=== PATIENT | female | born 1985 | race Caucasian/White ===

== ENCOUNTER 2024-02-21 12:54 | Outpatient (CLI) | payer OTHER, SELFPAY ==
--- NOTE | ~2024-02-21 | CT_ITS ---
EXAMINATION: CT abdomen pelvis w con DATE: 02/21/2024 13:17 INDICATION: Unspecified abdominal pain TECHNIQUE: Computed tomography (CT) of the abdomen and pelvis was performed with 100 mL Omnipaque-350 intravenous contrast. Automated exposure control and iterative reconstruction technique were employe d. The dose-length product was 410.60 mGy-cm. COMPARISON: None FINDINGS: Lung bases are clear. Heart size is normal. No pericardial or pleural effusion. Liver, gallbladder, s pleen, pancreas, bilateral adrenal glands and right kidney are normal. 6 x 4 x 3 mm stone at the left ureteropelvic junction without hydronephrosis. Bowels including the appendix are normal. Bladder, ut erus and right adnexa are unremarkable. 1.8 cm left ovarian cyst/follicle. No free intraperitoneal ga s or fluid. No pathologically enlarged abdominal or pelvic lymphadenopathy. Mild lower thoracic spond ylosis with chronic appearing mild anterior wedging at T10 and T11. IMPRESSION: 1. 6 mm stone at the left ureteropelvic junction without hydronephrosis. Reviewed, dictated and finalized at location B.
== END 2024-02-21 12:55 ==
PROVIDERS: PCP Physician Assistant; Visit Provider Physician Assistant
DX: R10.9 Unspecified abdominal pain (principal); R19.7 Diarrhea, unspecified; N20.1 Calculus of ureter
CPT/HCPCS: 74177; Q9967

== ENCOUNTER 2024-03-02 11:49 | Outpatient (CLI) | payer OTHER, SELFPAY ==
--- NOTE | ~2024-03-02 | US_ITS ---
US pelvic complete w TV Ordering provider: Fabiana Tim PA-C History: . N83.209 - Unspecified ovarian cyst, unspecified side . Comparison: None. Technique: Transabdominal and endovaginal ultrasound of the pelvis (Doppler ultrasound interrogation techniques used as needed for this exam.) FINDINGS: CERVIX: Normal. UTERUS: Measures 6.8x 3.2x 4.1 cm in length which is within normal limits and is anteverted. No myom etrial masses. ENDOMETRIUM: Normal in thickness measuring 5.7 mm. (Note: the premenopausal endometrium may measure u p to 16 mm when in the secretory phase.) No endometrial masses, cysts or fluid. CUL DE SAC: No free fluid. RIGHT OVARY: Normal in size measuring 1.3x 1.5x 1.9 cm. Normal echotexture. Doppler vascular flow pre sent. LEFT OVARY: Normal in size measuring 2.6x 1.6x 2.5 cm. Normal echotexture. Doppler vascular flow pres ent. ADNEXA: Normal. No mass. IMPRESSION: Normal pelvic ultrasound. Reviewed, dictated and finalized at location A. IMPRESSION: Normal pelvic ultrasound.
== END 2024-03-02 11:50 ==
PROVIDERS: PCP Family Medicine; Visit Provider Physician Assistant
DX: N83.209 Unspecified ovarian cyst, unspecified side (principal)
CPT/HCPCS: 76830; 76856

== ENCOUNTER 2024-05-12 13:56 | Outpatient (CLI) | payer OTHER, SELFPAY ==
--- NOTE | ~2024-05-12 | CT_ITS ---
EXAMINATION: CT abdomen pelvis wo con DATE: 05/12/2024 14:17 INDICATION: Kidney stone TECHNIQUE: Computed tomography (CT) of the abdomen and pelvis was performed without intravenous contr ast. Automated exposure control and iterative reconstruction technique were employed. The dose-length product was 213.16 mGy-cm. COMPARISON: 02/21/2024 FINDINGS: Lung bases are clear. Heart size is normal. No pericardial or pleural effusion. Liver, gallbladder, s pleen, pancreas, bilateral adrenal glands and right kidney are normal. 6 mm nonobstructing stone at t he lower pole of the left kidney which appears to reflux from the prior position at the ureteropelvic junction. No ureteral stones or hydronephrosis on either the left or right. Bladder, anteverted uter us and bilateral adnexa are unremarkable. Bowels including the appendix are normal. No free intraperi toneal gas or fluid. No pathologically enlarged abdominal or pelvic lymphadenopathy. Mild lower thora cic spondylosis. Chronic appearing mild anterior wedging at T10 and T11. IMPRESSION: 1. Previously seen 6 mm stone at the left ureteropelvic junction has refluxed into a lower pole calyx of the left kidney. No hydronephrosis. Reviewed, dictated and finalized at location A. IMPRESSION: 1. Previously seen 6 mm stone at the left ureteropelvic junction has refluxed i nto a lower pole calyx of the left kidney. No hydronephrosis.
== END 2024-05-12 13:57 | disposition home or self-care (01) ==
PROVIDERS: PCP Family Medicine
DX: N20.0 Calculus of kidney (principal)
CPT/HCPCS: 74176

== ENCOUNTER 2024-07-31 01:00 | Day surgery (SDC) | payer OTHER, SELFPAY ==
[2024-07-30 09:25] VITALS: BMI 23.9
[2024-07-31 09:09] VITALS: BP 120/86; PULSE 119; RESP 16; TEMP 36.4; O2SAT 100
--- NOTE | 2024-07-31 09:11 | WPDANESEPPF ---
Anes - Initial Pre Proc Eval Procedure: Operation Date: 07/31/24 10:30 Proposed Procedures p Esophagogastroduodenoscopy & Colonoscopy - Kvng Archer MD Date/Time: 07/31/24 09:11 Surgeon: Kvng Archer MD Pre Op Diagnosis: Nausea,GERD,dysphagia,diarrhea, Patient Data Age: 39 Gender: F Height: 1.6 m Weight: 61.3 kg Allergies Allergy/AdvReac Type Severity Reaction Status Date / Time pistachio nut Allergy Intermediate Other Verified 07/31/24 09:05 bacitracin Allergy Mild rash Verified 07/31/24 09:05 neomycin Allergy Mild sob Verified 07/31/24 09:05 polymyxin B Allergy Mild sob Verified 07/31/24 09:05 tamsulosin AdvReac Intermediate Nausea Uncoded 07/31/24 09:05 Home Medications ?Medication ?Instructions ?Recorded ?Confirmed ?Type gabapentin 300 mg capsule See Rx Instructions .Route 03/30/24 07/31/24 Rx .COMPLEX #360 caps amitriptyline 10 mg tablet See Rx Instructions .Route 03/31/24 07/31/24 Rx .COMPLEX #180 tabs clobetasol 0.05 % topical ointment 1 applic topical DAILY #60 grams 03/31/24 07/30/24 Rx triamcinolone acetonide 0.1 % 1 applic topical BID #80 grams 03/31/24 07/31/24 Rx topical ointment norethindrone 1 mg-ethinyl 1 tablet PO DAILY #112 tabs 06/10/24 07/31/24 Rx estradiol 20 mcg (24)-iron 75 mg (4) tablet () omeprazole 40 mg capsule,delayed 40 mg PO DAILY #90 caps 06/23/24 07/31/24 Rx release hyoscyamine sulfate 0.125 mg tablet 0.125 mg PO QID #360 tabs 07/20/24 07/31/24 Rx Patient hx anesthesia problems: none Family hx anesthesia problems: none Results Review: All pre-operative results and documents have been reviewed as part of the pre-operative evaluation. [facility] Past Medical History Medical History (Updated 07/31/24 @ 09:12 by Barrera Beal MD) Hyperlipidemia GERD (gastroesophageal reflux disease) Fibromyalgia Gluten intolerance Surgical History Surgical History [place] teeth extracted Family History Family History Father Alcoholic Social History Social History Social History: Single Smoking status: Never smoker Second hand tobacco smoke exposure: No Alcohol intake: never Substance use: never Substance use type: does not use Do You Feel Safe in your Home?: Yes Lack of Transportation: No Lack of Food: Never True Current Housing: I Have Housing Concerned About Future Housing: No Difficulty Paying Gas/Electric Bills: No Difficulty Paying for Meds: No Currently Unemployed: No Education: Decline to Answer Difficulty w/ Childcare or Family Care: Decline to Answer Living arrangements: alone Occupation/Education: occupation Additional occupation/education comments: Teacher Gender identity (if verbalized by the patient): Female Sexual Orientation (if Verbalized by the Patient): Straight or Heterosexual Spiritual care concerns: No Agree to blood products: No Anes - Eval Final PreProcedure Day of Procedure 07/31/24 09:11 Patient weight: normal Heart: tachycardia Lungs: clear to auscultation Airway: Mallampati scale class II Neurological: alert and oriented Last oral intake: >/= 8 hours ASA classification: III Emergent: no Anesthetic plan: proceed Anesthesia type and monitoring: general GIVS and standard monitoring Results Review: All pre-operative results and documents have been reviewed as part of the pre-operative evaluation. Informed Consent: The patient's anesthetic plan and its attendant risks and benefits were discussed with the patient/family/POA. Questions were solicited and answers provided to the satisfaction of the patient/family/POA.
[2024-07-31 09:15] LABS: BEDSIDEPREGUCG Negative (Negative)
[2024-07-31] MEDS: LACTATED RINGERS 1,000 ML 150 ML IV CONT (09:19)
--- NOTE | 2024-07-31 09:27 | WPDHPUPDATE1 ---
History and Physical Update Update Date/Time: 07/31/24 09:27 History and Physical has been reviewed, including an updated exam of the patient. There are NO changes in the patient's condition. Risks, benefits, and alternatives have been discussed and questions answered. Patient agrees to proceed with procedure.
--- NOTE | 2024-07-31 09:41 | SUR.OPER ---
EGD start 932 end 935, Colonoscopy start 941
[2024-07-31 09:51] VITALS: BP 92/62; PULSE 96; RESP 21; O2SAT 100
[2024-07-31 10:01] VITALS: BP 99/69; PULSE 81; RESP 15; O2SAT 100
[2024-07-31 10:11] VITALS: BP 99/72; PULSE 84; RESP 22; O2SAT 100
== END 2024-07-31 10:20 | disposition home or self-care (01) ==
PROVIDERS: Anesthesiology; PCP Family Medicine; Referring Provider Nurse Practitioner Family; Visit Provider Internal Medicine Gastroenterology
PROC: 0DJ08ZZ Inspection of Upper Intestinal Tract, Via Natural or Artificial Opening Endoscopic (ICD-10-PCS; CPT 43235; principal; 2024-07-31 10:30)
DX: K29.50 Unspecified chronic gastritis without bleeding (principal); R10.30 Lower abdominal pain, unspecified; R11.0 Nausea; R19.7 Diarrhea, unspecified; K21.9 Gastro-esophageal reflux disease without esophagitis; R13.10 Dysphagia, unspecified; R63.4 Abnormal weight loss; R63.0 Anorexia; R68.81 Early satiety; M79.7 Fibromyalgia; E78.5 Hyperlipidemia, unspecified; K90.41 Non-celiac gluten sensitivity; Z68.21 Body mass index [BMI] 21.0-21.9, adult
CPT/HCPCS: 45378; 43239; 88305; J2704; J7120

== ENCOUNTER 2024-08-04 08:04 | Outpatient (CLI) | payer OTHER, SELFPAY ==
--- NOTE | ~2024-08-04 | NM_ITS ---
EXAM: NM gastric emptying study DATE: 08/04/2024 12:53 CNC SET UP OPERATOR INDICATION: Early satiety TECHNIQUE: A gastric emptying study was performed using the methodology of Adal PORTILLO, et al. J Nucl Med 2007; 48:568-572. The patient was given a meal consisting of 2 scrambled eggs labeled with 1.059 mCi Tc-99m sulfur colloid, 2 slices of toast, two packages of jam, and approximately 120 mL of water . Simultaneous anterior and posterior 1-min images of the abdomen were obtained with the patient supi ne at multiple time points over a total period of 4 hours. The geometric mean of anterior and posteri or views was determined, and the percentage retention was calculated for each time point. COMPARISON: CT dated 05/12/2024. FINDINGS: Gastric retention of the radiotracer-labeled meal was 56%, 38%, and 2% at the 1-hour, 2-ho ur, and 4-hour time points, respectively. With this technique, apparent rapid gastric emptying is sug gested by <30% gastric retention at 1 hour. Delayed gastric emptying is defined by gastric retention of >90% at 1 hour, >60% retention at 2 hours, or >10% retention at 4 hours. IMPRESSION: 1. Normal gastric emptying. Reviewed, dictated and finalized at location B. SET UP OPERATOR IMPRESSION: 1. Normal gastric emptying.
== END 2024-08-04 08:05 | disposition home or self-care (01) ==
PROVIDERS: PCP Family Medicine; Visit Provider Nurse Practitioner Family
DX: R68.81 Early satiety (principal); R11.0 Nausea; R63.0 Anorexia; R63.4 Abnormal weight loss
CPT/HCPCS: 78264; A9541

== ENCOUNTER 2024-11-10 12:45 | Outpatient (CLI) | payer OTHER, SELFPAY ==
--- NOTE | ~2024-11-10 | CT_ITS ---
CT abdomen pelvis wo con Ordering provider: Fabiana Tim PA-C History: 39 years Female with . R10.9 - Unspecified abdominal pain . Comparison: May 12, 2024 Technique: CT abdomen and pelvis without IV and without oral contrast. Automated exposure control and iterative reconstruction technique were employed. The dose-length product was 274.88 mGy-cm. Findings: VISUALIZED LOWER CHEST: Normal. UPPER ABDOMINAL ORGANS: Liver: Normal. Gallbladder: Normal. Spleen: Normal. Stomach/duodenum: Normal. Pancreas: Normal. Adrenals: Normal. Kidneys: Left hydronephrotic changes with left ureteric stone in the upper ureter measuring 8 mm. PELVIC ORGANS: The bladder is normal. BOWEL AND MESENTERY: Colon: No evidence of diverticulitis.. Fecal material is loaded in the right side of the colon.No asher dence of appendicitis. Small Bowel: Normal. No obstruction. Peritoneum/mesentery: No free air or free fluid. No mesenteric lymphadenopathy. RETROPERITONEUM: Normal aorta. No retroperitoneal lymphadenopathy. MUSCULOSKELETAL: Superficial soft tissues: The superficial soft tissues are normal. Bones: Normal spine. IMPRESSION: 1. 8 mm stone in the left upper ureter with left hydronephrotic changes. 2. No evidence of appendicitis, diverticulitis or intestinal obstruction. 3. Constipation Reviewed, dictated and finalized at location A.
== END 2024-11-10 12:46 | disposition home or self-care (01) ==
PROVIDERS: PCP Family Medicine; Visit Provider Physician Assistant
DX: N13.2 Hydronephrosis with renal and ureteral calculous obstruction (principal); R19.7 Diarrhea, unspecified
CPT/HCPCS: 74176

== ENCOUNTER 2024-11-10 14:52 | Emergency (ER) | payer OTHER, SELFPAY ==
[2024-11-10 15:00] VITALS: BP 108/75; PULSE 103; RESP 16; TEMP 36.8; O2SAT 100
--- NOTE | 2024-11-10 15:07 | ED_ITS ---
HPI - Female Genitourinary General Chief complaint: Urogenital-Female <Leydi Cartagena APRN - Last Filed: 11/10/24 15:09> Stated complaint: Kidney stone blocking -Pain. Sent by MD <Leydi Cartagena APRN - Last Filed: 11/10/24 15:09> Time Seen by Provider: 11/10/24 15:47 <Leydi Cartagena APRN - Last Filed: 11/10/24 15:09> Focused HPI: Patient is a 39-year-old female who presented to her primary care provider with left flank pain. Her primary care provider did a UA which indicated 2+ blood and 2+ leuks. Patient's primary care provider then ordered a CT scan which indicates patient has a left 8mm stone causing hydronephrosis. She denies pain at the time of examination. Patient denies any recent fevers, constipation, chest pain, shortness a breath. GENERAL: Well-appearing, well-nourished, and in no acute distress. HEAD: Normocephalic, atraumatic. CHEST: Clear to auscultation. ?No respiratory distress. HEART: Regular rate and rhythm.? NEURO: ?Alert and oriented x3. Patient screened in triage and initial orders placed.? ?Additional care and disposition to be based upon?diagnostic testing and treatment. <Leydi Cartagena APRN - Last Filed: 11/10/24 15:09> History of Present Illness HPI Narrative: Agree with the HPI above. Patient has seen a urologist in the past but does not presently have a established urologist. Denies any urinary tract infection symptoms but no dysuria or hesitancy, urgency. No pain at this time and states her pain is colicky with ambulation but denies any persistent symptoms. No nausea or vomiting. <Lizandro Blanac MD - Last Filed: 11/10/24 17:59> Related Data Allergies/Adverse reactions: Allergies Allergy/AdvReac Type Severity Reaction Status Date / Time pistachio nut Allergy Intermediate Other Verified 11/10/24 15:14 bacitracin Allergy Mild rash Verified 11/10/24 15:14 neomycin Allergy Mild sob Verified 11/10/24 15:14 polymyxin B Allergy Mild sob Verified 11/10/24 15:14 tamsulosin AdvReac Intermediate Nausea Uncoded 11/10/24 15:14 <Leydi Cartagena APRN - Last Filed: 11/10/24 15:09> Review of Systems 2 Review of Systems: As reviewed above in HPI <Lizandro Blanca MD - Last Filed: 11/10/24 17:59> PMFSH Past Medical History Medical History: Medical History Hyperlipidemia GERD (gastroesophageal reflux disease) Fibromyalgia Gluten intolerance <Leydi Cartagena APRN - Last Filed: 11/10/24 15:09> Surgical History Surgical History: Surgical History [place] teeth extracted <Leydi Cartagena APRN - Last Filed: 11/10/24 15:09> Family History Family History: Family History Father Alcoholic <Leydi Cartagena APRN - Last Filed: 11/10/24 15:09> Social History Social History: Social History Social History: Single Smoking status: Never smoker Second hand tobacco smoke exposure: No Alcohol intake: never Substance use: never Substance use type: does not use Do You Feel Safe in your Home?: Yes Lack of Transportation: No Lack of Food: Never True Current Housing: I Have Housing Concerned About Future Housing: No Difficulty Paying Gas/Electric Bills: No Difficulty Paying for Meds: No Currently Unemployed: No Education: Decline to Answer Difficulty w/ Childcare or Family Care: Decline to Answer Living arrangements: alone Occupation/Education: occupation Additional occupation/education comments: Teacher Gender identity (if verbalized by the patient): Female Sexual Orientation (if Verbalized by the Patient): Straight or Heterosexual Spiritual care concerns: No Agree to blood products: No <Leydi Cartagena APRN - Last Filed: 11/10/24 15:09> Exam 2 Narrative: GENERAL: [Well-appearing, well-nourished, and in no acute distress.] HEAD: [Normocephalic, atraumatic.] EYES: [PERRLA and EOMI.] ENT: Nares clear, no rhinorrhea or epistaxis. Mucous membranes moist. NECK: Supple. CHEST: [Clear to auscultation. No respiratory distress.] HEART: [Regular rate and rhythm]. No murmur heard. [Normal peripheral pulses.] ABDOMEN: [Soft, nondistended], [nontender], [No rigidity or guarding] EXTREMITIES: Normal range of motion. [No edema.] SKIN: Warm, dry, no rash. NEURO: [No focal deficits]. Alert and oriented [x3.] PSYCH: [Normal mood and affect.] <Lizandro Blanca MD - Last Filed: 11/10/24 17:59> Course Vital Signs Vital signs: Vital Signs Temperature 36.8 C 11/10/24 15:00 Pulse Rate 103 H 11/10/24 15:00 Respiratory Rate 16 11/10/24 15:00 Blood Pressure 108/75 11/10/24 15:00 Pulse Oximetry 100 11/10/24 15:00 Temperature 36.8 C 11/10/24 15:00 Pulse Rate 91 11/10/24 16:39 Respiratory Rate 15 11/10/24 16:39 Blood Pressure 108/76 11/10/24 16:39 Pulse Oximetry 97 11/10/24 16:39 <Leydi Cartagena APRN - Last Filed: 11/10/24 15:09> Vital Signs Temperature 36.8 C 11/10/24 15:00 Pulse Rate 103 H 11/10/24 15:00 Respiratory Rate 16 11/10/24 15:00 Blood Pressure 108/75 11/10/24 15:00 Pulse Oximetry 100 11/10/24 15:00 Temperature 36.8 C 11/10/24 15:00 Pulse Rate 91 11/10/24 16:39 Respiratory Rate 15 11/10/24 16:39 Blood Pressure 108/76 11/10/24 16:39 Pulse Oximetry 97 11/10/24 16:39 <Lizandro Blanca MD - Last Filed: 11/10/24 17:59> MDM - Female Genitourinary MDM Narrative Medical decision making narrative: 39-year-old female with a past medical history including left-sided kidney stones in the past presents today with a outpatient CT scan that shows a kidney stone. Patient states she has been having left-sided colicky pain for several days. No urinary tract infection symptoms, dysuria, hematuria or urgency. Denies any chance of . She has not established with a urologist presently. Has never had a urological procedure in the past. No fever, chills, abdominal pain presently. States that her pain is mostly colicky and sometimes with movement. No trauma or injury. Outpatient CT scan was reviewed and does show a left-sided 8 mm stone with mild left hydro but no significant obstruction. Laboratory studies were done at this time including renal function panel, CBC, urinalysis and test. Workup shows no leukocytosis or anemia. Normal electrolytes. Normal platelet count. Normal renal and hepatic function panel. Negative test. Urinalysis shows no bacteria, microscopic hematuria, no convincing signs of urinary tract infection. I discussed the case with the on-call urologist Dr. Yuen who is comfortable with my plan for outpatient evaluation by Urology for potential intervention such as lithotripsy versus stenting if needed. Patient is comfortable with this plan she is presently asymptomatic. She was given urology referral information and as needed pain control medications discharge home within including [facility]. <Lizandro Blanca MD - Last Filed: 11/10/24 17:59> Medical Records Attestation: I reviewed the patient's medical records. <Lizandro Blanca MD - Last Filed: 11/10/24 17:59> Lab Data Attestation: I reviewed the patient's lab results. <Lizandro Blanca MD - Last Filed: 11/10/24 17:59> Result diagrams: 11/10/24 16:41 11/10/24 16:40 <Leydi Cartagena APRN - Last Filed: 11/10/24 15:09> Labs: Lab Results 11/10/24 11/10/24 11/10/24 Range/Units 16:40 16:41 16:44 WBC 6.4 (4.5-10.0) K/mm3 RBC 4.35 (4.2-5.4) M/mm3 Hgb 13.4 (12.0-15.0) g/dL Hct 40.3 (37.0-47.0) % MCV 92.6 (80-100) fl MCH 30.8 (26-34) pg MCHC 33.3 (32-36) g/dl RDW 12.6 (11.5-14.5) % Plt Count 288 (150-375) k/mm3 MPV 10.8 H (7.4-10.4) fl Immature Gran % (Auto) 0.2 (0-0.5) % Neut % (Auto) 49.7 (45.5-73.1) % Lymph % (Auto) 40.8 (18.3-44.2) % Tama % (Auto) 7.8 (2.6-8.5) % Eos % (Auto) 0.9 (0-4.4) % Baso % (Auto) 0.6 (0.2-1.2) % Lymph # (Auto) 2.60 (0.9-3.2) K/mm3 Tama # (Auto) 0.5 (0.1-0.6) K/mm3 Eos # (Auto) 0.1 (0-0.3) K/mm3 Baso # (Auto) 0.0 (0.0-0.1) K/mm3 Abs Immat Gran (auto) 0.01 (0.00-0.031) K/mm3 Absolute Neuts (auto) 3.2 (1.3-6.7) K/mm3 Absolute Nucleated RBC 0.000 (0.0-0.012) K/mm3 Nucleated RBC % 0.0 (0.0-0.2) % Sodium 140 (137-145) mmol/L Potassium 3.9 (3.4-5.0) mmol/L Chloride 102 (98-107) mmol/L Carbon Dioxide 27 (22-30) mmol/L Anion Gap 11 (4-12) mmol/L BUN 9 (7-17) mg/dL Creatinine 0.71 (0.7-1.0) mg/dL Estim Creat Clear Calc 74 ml/min Estimated GFR > 60 (59 - ) Glucose 97 (65-110) mg/dL Calcium 9.4 (8.4-10.2) mg/dL Total Bilirubin 0.8 (0.2-1.3) mg/dL AST 28 (14-36) U/L ALT 21 (6-35) U/L Alkaline Phosphatase 55 (38-126) U/L Total Protein 8.0 (6.3-8.2) g/dL Albumin 4.4 (3.5-5.1) g/dL Urine Color Yellow (Yellow) Urine Appearance Clear (Clear) Urine pH 5.5 (5.0-9.0) Ur Specific [place] 1.008 (1.001-1.035) Urine Protein Trace (Negative) mg/dL Urine Glucose (UA) Negative (Negative) mg/dL Urine Ketones Negative (Negative) mg/dL Ur Blood (Man) 3+ H (Negative) Urine Nitrate Negative (Negative) Urine Bilirubin Negative (Negative) Urine Urobilinogen 0.2 (<2.0) mg/dL Leukocyte Esterase Rfl 1+ H (Negative) TIRSO/UL Urine RBC 11-20 H (0-2) /hpf Urine WBC 11-20 H (0-3) /hpf Ur Squamous Epith Cells Occasional (Few) /hpf Urine Bacteria None seen /hpf Urine Casts 0-2 POC Urine HCG, Qual Negative (Negative) <Leydi Cartagena, INDUSTRIAL MAINTENANCE INSTRUCTOR - Last Filed: 11/10/24 15:09> Lab Results 11/10/24 11/10/24 11/10/24 Range/Units 16:40 16:41 16:44 WBC 6.4 (4.5-10.0) K/mm3 RBC 4.35 (4.2-5.4) M/mm3 Hgb 13.4 (12.0-15.0) g/dL Hct 40.3 (37.0-47.0) % MCV 92.6 (80-100) fl MCH 30.8 (26-34) pg MCHC 33.3 (32-36) g/dl RDW 12.6 (11.5-14.5) % Plt Count 288 (150-375) k/mm3 MPV 10.8 H (7.4-10.4) fl Immature Gran % (Auto) 0.2 (0-0.5) % Neut % (Auto) 49.7 (45.5-73.1) % Lymph % (Auto) 40.8 (18.3-44.2) % Tama % (Auto) 7.8 (2.6-8.5) % Eos % (Auto) 0.9 (0-4.4) % Baso % (Auto) 0.6 (0.2-1.2) % Lymph # (Auto) 2.60 (0.9-3.2) K/mm3 Tama # (Auto) 0.5 (0.1-0.6) K/mm3 Eos # (Auto) 0.1 (0-0.3) K/mm3 Baso # (Auto) 0.0 (0.0-0.1) K/mm3 Abs Immat Gran (auto) 0.01 (0.00-0.031) K/mm3 Absolute Neuts (auto) 3.2 (1.3-6.7) K/mm3 Absolute Nucleated RBC 0.000 (0.0-0.012) K/mm3 Nucleated RBC % 0.0 (0.0-0.2) % Sodium 140 (137-145) mmol/L Potassium 3.9 (3.4-5.0) mmol/L Chloride 102 (98-107) mmol/L Carbon Dioxide 27 (22-30) mmol/L Anion Gap 11 (4-12) mmol/L BUN 9 (7-17) mg/dL Creatinine 0.71 (0.7-1.0) mg/dL Estim Creat Clear Calc 74 ml/min Estimated GFR > 60 (59 - ) Glucose 97 (65-110) mg/dL Calcium 9.4 (8.4-10.2) mg/dL Total Bilirubin 0.8 (0.2-1.3) mg/dL AST 28 (14-36) U/L ALT 21 (6-35) U/L Alkaline Phosphatase 55 (38-126) U/L Total Protein 8.0 (6.3-8.2) g/dL Albumin 4.4 (3.5-5.1) g/dL Urine Color Yellow (Yellow) Urine Appearance Clear (Clear) Urine pH 5.5 (5.0-9.0) Ur Specific [place] 1.008 (1.001-1.035) Urine Protein Trace (Negative) mg/dL Urine Glucose (UA) Negative (Negative) mg/dL Urine Ketones Negative (Negative) mg/dL Ur Blood (Man) 3+ H (Negative) Urine Nitrate Negative (Negative) Urine Bilirubin Negative (Negative) Urine Urobilinogen 0.2 (<2.0) mg/dL Leukocyte Esterase Rfl 1+ H (Negative) TIRSO/UL Urine RBC 11-20 H (0-2) /hpf Urine WBC 11-20 H (0-3) /hpf Ur Squamous Epith Cells Occasional (Few) /hpf Urine Bacteria None seen /hpf Urine Casts 0-2 POC Urine HCG, Qual Negative (Negative) <Lizandro Blanca MD - Last Filed: 11/10/24 17:59> Imaging Data Attestation: I personally reviewed and interpreted this imaging study as follows: < Lizandro Blanca MD - Last Filed: 11/10/24 17:59> My impression: 8 mm stone left upper ureter, mild left hydro. No other acute intra- abdominal process. <Lizandro Blanca MD - Last Filed: 11/10/24 17:59> Discharge Plan Discharge Clinical Impression: Kidney stone on left side, Renal colic on left side <Leydi Cartagena APRN - Last Filed: 11/10/24 15:09> Patient Disposition: Home, Self-Care <Leydi Cartagena APRN - Last Filed: 11/10/24 15:09> Condition: Stable <Leydi Cartagena APRN - Last Filed: 11/10/24 15:09> Instructions: Antibiotic Form, Kidney Stones (ED) <Leydi Cartagena APRN - Last Filed: 11/10/24 15:09> Additional Instructions: You have a 8 mm stone in the upper part your left kidney. No signs of urinary tract infection, your laboratory studies are all normal. We will send you home with Flomax for helping with the pain in addition to as needed pain control medications including oxycodone. Follow-up with the urologist, return with any new or worsening concerns such as developing urinary tract infection symptoms, intractable pain, nauseousness vomiting, fevers despite Tylenol. <Leydi Cartagena APRN - Last Filed: 11/10/24 15:09> Patient Language: Slovenian <Leydi Cartagena APRN - Last Filed: 11/10/24 15:09> Prescriptions: New oxycodone 5 mg tablet 5 mg PO Q8H PRN (Reason: pain) Qty: 10 0RF tamsulosin [Flomax] 0.4 mg capsule 0.4 mg PO DAILY Qty: 20 0RF No Action Junel Fe 24 1 mg-20 mcg (24)/75 mg (4) tablet 1 tablet PO DAILY Qty: 112 4RF Rx Instructions: take 1 tablet every day in a continuous manner skipping the placebo to skip cycles omeprazole 40 mg capsule,delayed release(DR/EC) 40 mg PO DAILY Qty: 90 1RF dicyclomine 10 mg capsule 10 mg PO BID Qty: 90 0RF ondansetron 4 mg tablet,disintegrating 4 mg PO Q8H PRN (Reason: nausea and vomiting) Qty: 42 0RF clobetasol 0.05 % ointment 1 applic topical DAILY Qty: 60 4RF triamcinolone acetonide 0.1 % ointment 1 applic topical BID Qty: 80 2RF gabapentin 300 mg capsule See Rx Instructions .ROUTE .COMPLEX Qty: 360 3RF Dose Instruction: TAKE 1 CAPSULE FOUR TIMES A DAY Rx Instructions: TAKE 1 CAPSULE FOUR TIMES A DAY amitriptyline 10 mg tablet See Rx Instructions .ROUTE .COMPLEX Qty: 180 3RF Dose Instruction: TAKE 2 TABLETS AT BEDTIME Rx Instructions: TAKE 2 TABLETS AT BEDTIME Xifaxan 550 mg tablet 550 mg PO TID 14 Days Qty: 42 1RF <Leydi Cartagena APRN - Last Filed: 11/10/24 15:09> Follow-up/Referrals: Linus Brown MD [Primary Care Provider] - Munir Yuen MD [Physician] - 1 Week (Left-sided kidney stone, renal colic) <Leydi Cartagena APRN - Last Filed: 11/10/24 15:09> Time of Disposition: 17:59 <Leydi Cartagena APRN - Last Filed: 11/10/24 15:09> 17:59 <Lizandro Blanca MD - Last Filed: 11/10/24 17:59>
[2024-11-10 15:14] VITALS: BP 102/74; PULSE 97; RESP 15; O2SAT 100
[2024-11-10 16:39] VITALS: BP 108/76; PULSE 91; RESP 15; O2SAT 97
[2024-11-10 16:46] LABS: BEDSIDEPREGUCG Negative (Negative)
[2024-11-10 16:51] LABS: Basophils Percent Auto 0.6 % (0.2-1.2); Eosinophils Absolute Auto 0.1 K/mm3 (0-0.3); Eosinophils Percent Auto 0.9 % (0-4.4); Hematocrit 40.3 % (37.0-47.0); Hemoglobin 13.4 g/dL (12.0-15.0); Immature Granulocyte Absolute 0.01 K/mm3 (0.00-0.031); Immature Granulocyte Percent A 0.2 % (0-0.5); Lymphocytes Percent Auto 40.8 % (18.3-44.2); Mean Corpuscular HGB Conc 33.3 g/dl (32-36); Mean Corpuscular Hemoglobin 30.8 pg (26-34); Mean Corpuscular Volume 92.6 fl (80-100); Mean Platelet Volume 10.8 fl (7.4-10.4); Monocytes Absolute Auto 0.5 K/mm3 (0.1-0.6); Monocytes Percent Auto 7.8 % (2.6-8.5); Neutrophils Absolute Auto 3.2 K/mm3 (1.3-6.7); Neutrophils Percent Auto 49.7 % (45.5-73.1); Platelet Count Result 288 k/mm3 (150-375); Red Blood Count 4.35 M/mm3 (4.2-5.4); Red Cell Distribution Width 12.6 % (11.5-14.5); White Blood Count 6.4 K/mm3 (4.5-10.0)
[2024-11-10 16:57] LABS: Add Urine Microscopic? YES; Appearance Urine Clear (Clear); Bacteria Urine None Seen /hpf; Bilirubin Urine Negative (Negative); Blood Urine 3+ (Negative); Color Urine Yellow (Yellow); Glucose Urine UA Negative (Negative); Ketones Urine Negative (Negative); Leukocyte Esterase Ur 1+ LEU/UL (Negative); Nitrate Urine Negative (Negative); Non Pathogenic Casts 0-2; Protein Urine Trace mg/dL (Negative); Specific Grav Ur 1.008 (1.001-1.035); Squamous Epithelial Cell Urine Occasional /hpf (Few); Urobilinogen Urine 0.2 mg/dL (<2.0); pH Urine 5.5 (5.0-9.0)
[2024-11-10 17:00] LABS: Alanine Aminotransferase 21 U/L (6-35); Albumin Level 4.4 g/dL (3.5-5.1); Alkaline Phosphatase 55 U/L (38-126); Anion Gap 11 mmol/L (4-12); Aspartate Amino Transferase 28 U/L (14-36); Bilirubin,Total 0.8 mg/dL (0.2-1.3); Blood Urea Nitrogen 9 mg/dL (7-17); Calcium 9.4 mg/dL (8.4-10.2); Carbon Dioxide 27 mmol/L (22-30); Chloride 102 mmol/L (98-107); Estimated CRCL calculation 74 ml/min; Estimated Glomerular Filt Rate > 60; Glucose 97 mg/dL (65-110); Potassium 3.9 mmol/L (3.4-5.0); Sodium 140 mmol/L (137-145)
[2024-11-10 18:04] VITALS: BP 94/78; PULSE 80; RESP 15; O2SAT 100
== END 2024-11-10 18:05 | disposition home or self-care (01) ==
PROVIDERS: Emergency Provider Student in an Organized Health Care Education/Training Program; PCP Family Medicine
DX: N20.0 Calculus of kidney (principal); R10.9 Unspecified abdominal pain; E78.5 Hyperlipidemia, unspecified; K21.9 Gastro-esophageal reflux disease without esophagitis; M79.7 Fibromyalgia
CPT/HCPCS: 36415; 80053; 81001; 81025; 85025; 87086; 99283

== ENCOUNTER 2024-11-12 09:53 | Outpatient (CLI) | payer OTHER, SELFPAY ==
--- NOTE | ~2024-11-12 | XR_ITS ---
XR abdomen/kub 1V Ordering provider: Raoul Byrne MD History: . LT uretal stone . Comparison: None. FINDINGS: BOWEL: Nonobstructive bowel gas pattern. ORGANOMEGALY: None. SIGNIFICANT PATHOLOGIC CALCIFICATIONS: Stone is seen in the left upper ureter measuring 8 x 4 mm.. OTHER: No free air is seen under the diaphragm. IMPRESSION: NO ACUTE ABDOMINAL FINDINGS. Left upper ureteric stone. Reviewed, dictated and finalized at location A.
== END 2024-11-12 09:54 | disposition home or self-care (01) ==
LOC: ANHIMG 10:13
PROVIDERS: PCP Family Medicine; Visit Provider Urology
DX: N20.1 Calculus of ureter (principal)
CPT/HCPCS: 74018

== ENCOUNTER 2024-11-13 00:29 | Day surgery (SDC) | payer OTHER, SELFPAY ==
--- NOTE | 2024-11-12 10:50 | PC.NURSE ---
Report to the Outpatient Waiting Room, entrance under the green pavilion located off [facility], at time _8:30 AM on date __11/13/24 . Planned Procedure Time: _10 :30 AM .? Time changes happen often and if your time is changed the preop area will call you the afternoon before. - You and your visitor will be asked to self-screen and do not enter if you have any COVID symptoms. Please call surgeon if you need to reschedule. - A mask is optional within the hospital at this time. Patients may have clear liquids (water, carbonated beverages, clear teas, apple juice) until 3 hours prior to surgery ( 7:30 AM) with a maximum of 20 ounces. - No food from midnight until time of surgery and no smoking, or chewing tobacco (or any form of nicotine). No chewing gum, candy or mints. - Infants may have breast milk until 4 hours before surgery, formula 6 hours prior to surgery. - Children will be allowed to drink immediately following surgery.? If applicable, please bring a bottle or sippy cup to assist with drinking. Juice, water, soda, and popsicles are readily available.? For infants on formula, please bring formula the day of surgery.? Pacifiers are allowed. Take only the following medications with a SIP of water on the morning of surgery: _GABAPENTIN DO NOT STOP ANY OF YOUR OTHER PRESCRIPTION MEDICATIONS PRIOR TO SURGERY EXCEPT THE FOLLOWING Hold all vitamins and supplements for 3 days per anesthesiologist. Medications to discontinue per physician NONE Please no make-up, nail arabic, hairspray, perfume, deodorant, or body powder the day of surgery.? No jewelry (including any body piercings) or valuables the day of surgery, leave them at home.? Please take a shower or bath the night before, or the morning of, surgery with an antibacterial soap.? Wear comfortable, loose fitting clothing.? Children are encouraged to wear pajamas. - Jewelry must be removed prior to entering the operating room.? Rings and piercings that are not removed may be cut off. - The hospital will not accept responsibility for valuables.? - Please leave all valuables, including medications, at home the day of surgery. If you are going home after surgery, a licensed car driver must drive you home.? - NO public transportation without another adult if you receive anesthesia. - We recommend that an adult stay with you for 24 hours following discharge. - We also recommend that you do not drive, make important decision, drink alcoholic beverages, or take any drugs that were not prescribed by your health care provider for at least 24 hours after your discharge time. Follow any additional instructions given to you from your surgeon. Telephone instructions given to ___PATIENT and asked if any additional questions and then verbalized understanding. Patient advised to call surgeon office or pre surgery nurse liaison [phone] if any additional questions.
[2024-11-12 11:00] VITALS: BMI 21.9
[2024-11-13] VITALS (13 sets, daily range): BP systolic 90–121; BP diastolic 59–83; PULSE 66–98; RESP 12–18; TEMP 36.2–36.7; O2SAT 100; BMI 21.6
--- NOTE | ~2024-11-13 | XR_ITS ---
EXAMINATION: XR retrograde pyelo w/stent LT DATE: 11/13/2024 11:52 INDICATION: Left internal ureteral stent placement TECHNIQUE: Fluoroscopic images from a left internal ureteral stent placement are submitted for review . 15 seconds of fluoroscopy of fluoroscopy time. FINDINGS: There is a left double-J internal ureteral stent projecting in expected position, with proximal Butler loop at the level of the renal pelvis. The distal loop is not visualized. IMPRESSION: 1. Left internal ureteral stent placement. Please refer to real-time procedural findings for detail s. Reviewed, dictated and finalized at location A. IMPRESSION: 1. Left internal ureteral stent placement. Please refer to real-time procedur al findings for details.
--- NOTE | 2024-11-13 07:22 | WPDHPUPDATE1 ---
History and Physical Update Update Date/Time: 11/13/24 07:22 History and Physical has been reviewed, including an updated exam of the patient. There are NO changes in the patient's condition. Risks, benefits, and alternatives have been discussed and questions answered. Patient agrees to proceed with procedure.
[2024-11-13] MEDS: LACTATED RINGERS 1,000 ML 30 ML IV CONT ×2 (08:45→12:34)
--- NOTE | 2024-11-13 09:57 | WPDANESEPPF ---
Anes - Initial Pre Proc Eval Procedure: Operation Date: 11/13/24 10:30 Proposed Procedures p Cystoscopy, Left Ureteroscopy, Possible Left Retrograde Pyelogram, Possible Left Stone Extraction, Possible Left Stent Placement, Possible Holmium Laser - Raoul Byrne MD Date/Time: 11/13/24 09:57 Surgeon: Raoul Byrne MD Pre Op Diagnosis: left ureteral stone Patient Data Age: 39 Gender: F Height: 1.6 m Weight: 55.4 kg Last Vital Signs Temp 36.7 C 11/13/24 08:50 Pulse 98 11/13/24 08:50 Resp 18 11/13/24 08:50 BP 108/76 11/13/24 08:50 Pulse Ox 100 11/13/24 08:50 O2 Del Method Room Air 11/13/24 08:50 Allergies Allergy/AdvReac Type Severity Reaction Status Date / Time pistachio nut Allergy Intermediate Other Verified 11/13/24 08:41 bacitracin Allergy Mild rash Verified 11/13/24 08:41 neomycin Allergy Mild sob Verified 11/13/24 08:41 polymyxin B Allergy Mild sob Verified 11/13/24 08:41 tamsulosin AdvReac Intermediate Itching Uncoded 11/12/24 10:20 Home Medications ?Medication ?Instructions ?Recorded ?Confirmed ?Type gabapentin 300 mg capsule See Rx Instructions .Route 03/30/24 11/13/24 Rx .COMPLEX #360 caps amitriptyline 10 mg tablet See Rx Instructions .Route 03/31/24 11/13/24 Rx .COMPLEX #180 tabs clobetasol 0.05 % topical ointment 1 applic topical DAILY #60 grams 03/31/24 11/12/24 Rx triamcinolone acetonide 0.1 % 1 applic topical BID #80 grams 03/31/24 11/12/24 Rx topical ointment norethindrone 1 mg-ethinyl 1 tablet PO DAILY #112 tabs 06/10/24 11/12/24 Rx estradiol 20 mcg (24)-iron 75 mg (4) tablet () omeprazole 40 mg capsule,delayed 40 mg PO DAILY #90 caps 06/23/24 11/13/24 Rx release dicyclomine 10 mg capsule 10 mg PO BID #90 caps 08/27/24 11/12/24 Rx rifaximin 550 mg tablet (Xifaxan) 550 mg PO TID 14 days #42 tabs 09/25/24 11/12/24 Rx ondansetron 4 mg disintegrating 4 mg PO Q8H PRN nausea and 10/28/24 11/12/24 Rx tablet vomiting #42 tabs oxycodone 5 mg tablet 5 mg PO Q8H PRN pain #10 tabs 11/10/24 11/12/24 Rx tamsulosin 0.4 mg capsule (Flomax) 0.4 mg PO DAILY #20 caps 11/10/24 11/12/24 Rx metoclopramide HCl 5 mg tablet 5 mg PO Q8H PRN nausea and 11/11/24 11/12/24 Rx vomiting #90 tabs Patient hx anesthesia problems: none Family hx anesthesia problems: none Results Review: All pre-operative results and documents have been reviewed as part of the pre-operative evaluation. [facility] Past Medical History Medical History Hyperlipidemia GERD (gastroesophageal reflux disease) Fibromyalgia Gluten intolerance Surgical History Surgical History Smoaks teeth extracted Family History Family History Father Alcoholic Social History Social History Social History: Single Smoking status: Never smoker Second hand tobacco smoke exposure: No Alcohol intake: never Substance use: never Substance use type: does not use Do You Feel Safe in your Home?: Yes Lack of Transportation: No Lack of Food: Never True Current Housing: I Have Housing Concerned About Future Housing: No Difficulty Paying Gas/Electric Bills: No Difficulty Paying for Meds: No Currently Unemployed: No Education: Decline to Answer Difficulty w/ Childcare or Family Care: Decline to Answer Living arrangements: alone Occupation/Education: occupation Additional occupation/education comments: Teacher Gender identity (if verbalized by the patient): Female Sexual Orientation (if Verbalized by the Patient): Straight or Heterosexual Spiritual care concerns: No Agree to blood products: No Anes - Eval Final PreProcedure Day of Procedure 11/13/24 09:57 Patient weight: normal Heart: regular rate and rhythm Lungs: clear to auscultation Airway: Mallampati scale class II Neurological: alert and oriented Last oral intake: >/= 8 hours ASA classification: II Emergent: no Anesthesia type and monitoring: general LMA and standard monitoring Results Review: All pre-operative results and documents have been reviewed as part of the pre-operative evaluation. Informed Consent: The patient's anesthetic plan and its attendant risks and benefits were discussed with the patient/family/POA. Questions were solicited and answers provided to the satisfaction of the patient/family/POA.
[2024-11-13] MEDS: ceFAZolin 2 GM/D5W 50 ML 2 GM/50 ML BAG IVPB (10:59)
[2024-11-13 11:06] LABS: BEDSIDEPREGUCG Negative (Negative)
[2024-11-13] MEDS: LIDOCAINE 2% GEL UROJET 10 ML PKG MUCOUS MEM (11:13)
--- NOTE | 2024-11-13 11:44 | W.PM.PROC2 ---
Procedure Note - Detailed Date of Procedure 11/13/24 Pre-op Diagnosis left ureteral stone Post-op Diagnosis Same Procedure Performed Cystoscopy, left retrograde pyelogram, left ureteroscopy with holmium laser, left stent placement 4.8 Malaysian contour Surgeon Raoul Byrne MD Anesthesia General Description of Procedure Patient was taken to the operative suite correctly identified. Once anesthesia was obtained she was placed in dorsal lithotomy position and prepped and draped usual sterile fashion. Nineteen Malaysian scope was inserted the bladder. There were no tumors noted. Left ureteral orifice was cannulated with a guidewire. A ureteral access sheath was placed in a mini flexible ureteral scope inserted. The stone was looked visualized too large to retrieve. Using a 200 micron fiber we lasered the stone into multiple pieces and dusted. There was no significant stone burden to retrieve at this time. Pyelogram was then performed. 4.8 Malaysian contour stent was then placed with the proximal end coiled in the left renal pelvis and the distal in the bladder. Bladder was drained. 2% viscous lidocaine was inserted into the urethra and patient is taken recovery stable condition. She will follow up in a week's time for stent removal. This completes dictation. Please send a copy of op note to my office. Drains Yes Packing No Pathology None sent Complications No immediate complications Condition Stable Disposition PACU
[2024-11-13] MEDS: fentaNYL CITRATE INJ (*CRX) 100 MCG/2 ML VIAL 25 MCG IV PUSH (12:34)
[2024-11-13] MEDS: KETOROLAC 15 MG/ML VIAL (*BKC) IV PUSH (12:55)
[2024-11-13] MEDS: oxyBUTYnin CHLORIDE 5 MG TABLET PO (13:20)
== END 2024-11-13 14:27 | disposition home or self-care (01) ==
PROVIDERS: PCP Family Medicine; Visit Provider Urology
PROC: (CPT 52352; principal; 2024-11-13 10:30)
DX: N20.1 Calculus of ureter (principal); E78.5 Hyperlipidemia, unspecified; K21.9 Gastro-esophageal reflux disease without esophagitis; D64.9 Anemia, unspecified; M19.90 Unspecified osteoarthritis, unspecified site; M79.7 Fibromyalgia; K90.41 Non-celiac gluten sensitivity; Z79.891 Long term (current) use of opiate analgesic; Z98.890 Other specified postprocedural states
CPT/HCPCS: 52356; 74420; A9270; C1769; C1894; C2617; J0690; J1100; J1885; J2003; J2250; J2405; J2704; J3010; J7120; Q9966